=== PATIENT | female | born 1975 | race Caucasian/White ===

== ENCOUNTER 2019-04-26 14:25 | Outpatient (CLI) | payer BC, SELFPAY ==
--- NOTE | 2019-04-28 22:04 | WPDPFTINT ---
PFT Interpretation PFT Interpretation: DOS: 04/26/2019 REQUESTING: Atif Araiza MD REASON FOR TESTING: Chronic cough PULMONARY FUNCTION TESTS Spirometry: Mild decrease in FEV1 77%, 2.15 L. Mild decrease in FVC 75%. Normal FEV1%. There is a nonstatistically significant increase in FEV1 4% after bronchodilator. Lung volumes: Normal TLC, 82%. Normal RV. Mild increase in RV/TLC ratio. Normal airway resistance. Diffusion: DLCO unfortunately could not be obtained due to machine malfunction. Flow volume loop: Coughing throughout the loop. IMPRESSION: Mild obstructive ventilatory impairment, non-statistically significant increase in flows after bronchodilator, mild air trapping. No diffusion obtained due to technical problems with equipment. Traci Araiza MD
== END 2019-04-26 14:26 | disposition home or self-care (01) ==
PROVIDERS: PCP Family Medicine; Visit Provider Internal Medicine Critical Care Medicine
DX: R05 Cough (principal); R94.2 Abnormal results of pulmonary function studies
CPT/HCPCS: 94060; 94726

== ENCOUNTER 2019-07-06 13:22 | Outpatient (CLI) | payer BC, SELFPAY ==
--- NOTE | ~2019-07-06 | MR_ITS ---
EXAMINATION: MR foot RT wo con DATE: 07/06/2019 14:27 INDICATION: Pain at the right second metatarsophalangeal joint. Predislocation syndrome. TECHNIQUE: Magnetic resonance imaging (MRI) of the right foot was performed without intravenous contr ast. Sequences included sagittal T1-weighted FSE and STIR FSE, long-axis PD-weighted FS FSE and PD-we ighted FSE, and short-axis PD-weighted FS FSE, STIR FSE, and T1-weighted FSE. COMPARISON: None FINDINGS: There are surgical changes of first metatarsal, likely a bunionectomy. There is dorsiflexio n of the metatarsophalangeal joints and flexion of the interphalangeal joints, worst at the second di git. No fracture. There is mild osteoarthritis of first metatarsophalangeal joint and some of the int erphalangeal joints. Lisfranc ligament is normal. The flexor and extensor tendons are normal. There i s mild tenosynovitis of flexor digitorum of 4th digit. IMPRESSION: 1. Mild tenosynovitis of flexor digitorum of 4th digit. 2. Mild polyarticular osteoarthritis. Reviewed, dictated and finalized at location A.
== END 2019-07-06 13:23 | disposition home or self-care (01) ==
PROVIDERS: PCP Family Medicine; Visit Provider Podiatrist Foot & Ankle Surgery
DX: M24.474 Recurrent dislocation, right foot (principal); M65.871 Other synovitis and tenosynovitis, right ankle and foot; M19.071 Primary osteoarthritis, right ankle and foot
CPT/HCPCS: 73718

== ENCOUNTER 2019-08-21 00:32 | Outpatient (CLI) | payer BC, SELFPAY ==
[2019-08-21 17:33] LABS: SARS-CoV-2 RNA PCR Negative
== END 2019-08-21 00:33 | disposition home or self-care (01) ==
LOC: ANHCOVIDDT 00:33
PROVIDERS: PCP Family Medicine; Visit Provider Podiatrist Foot & Ankle Surgery
DX: Z01.812 Encounter for preprocedural laboratory examination (principal); Z20.828 Contact with and (suspected) exposure to other viral communicable diseases
CPT/HCPCS: 87635; C9803; U0003

== ENCOUNTER 2019-08-23 01:28 | Day surgery (SDC) | payer BC, SELFPAY ==
[2019-08-19 15:15] VITALS: BMI 32.3
[2019-08-23] VITALS (7 sets, daily range): BP systolic 126–144; BP diastolic 86–98; PULSE 79–103; RESP 10–20; TEMP 37.2; O2SAT 95–100
--- NOTE | ~2019-08-23 | XR_ITS ---
EXAMINATION: XR surgery orthopedic DATE: 08/23/2019 09:20 INDICATION: Right foot surgery TECHNIQUE: A single fluoroscopic spot image of the right forefoot was obtained during procedure perfo rmed by Dr. Martin. Radiologist was not present for the imaging or procedure. The amount of fluoros copy time used during this procedure was 0.3 minutes. COMPARISON: Right foot MRI dated 07/06/2019 FINDINGS: Again seen are postoperative change of prior bunionectomy and likely first metatarsal realignment ost eotomy with pin fixation. Medial sided staple at the first proximal phalangeal diaphysis likely for f ixation of an old medial closing wedge realignment osteotomy. New second proximal interphalangeal art hrodesis with fixation device. Shortening osteotomy at the neck of the second metatarsal with a pair of fixation screws. There is also a lucent anchor tract at the base of the second proximal phalanx. A lignment appears near-anatomic. No fracture. Slight widening of the second metatarsophalangeal joint space. IMPRESSION: 1. Fluoroscopy utilized during orthopedic procedures on the second ray of the right foot. See procedu re note for further detail. Reviewed, dictated and finalized at location A. IMPRESSION: 1. Fluoroscopy utilized during orthopedic procedures on the second ray of the r ight foot. See procedure note for further detail.
[2019-08-23] MEDS: LACTATED RINGERS 1,000 ML 30 ML IV CONT ×2 (06:45→09:39)
--- NOTE | 2019-08-23 06:50 | WPDANESEPPF ---
Anes - Initial Pre Proc Eval Procedure: Operation Date: 08/23/19 07:30 Proposed Procedures p Rico Salangio Osteotomy Right Hallux, Jazmyn Shortening Metatarsal Osteotomy Right Foot - Aydin Martin JR, MD s Silver Bunionectomy Right Foot, Plantar Plate Repair Second Metatarsophalangeal Joint Right Foot - Aydin Martin JR, MD s Hammer Toe Repair Second Digit Right Foot - Aydin Martin JR, MD Date/Time: 08/23/19 06:50 Surgeon: Aydin Martin JR, MD Pre Op Diagnosis: Hallux Valgus,Hammer Toe Right Foot,Metatarsalgia Patient Data Age: 44 Gender: F Height: 5 ft 6 in Weight: 90.72 kg Allergies Allergy/AdvReac Type Severity Reaction Status Date / Time No Known Allergies Allergy Verified 08/19/19 15:16 Home Medications Medication Instructions Recorded Confirmed Type gabapentin 300 mg capsule 300 mg PO QPM 07/22/19 08/23/19 History paroxetine HCl 40 mg tablet 40 mg PO QPM tablet 07/22/19 08/23/19 History pramipexole 0.5 mg tablet 1.5 mg PO QPM tablet 07/22/19 08/23/19 History acyclovir 200 mg PO QID 08/23/19 08/23/19 History Patient hx anesthesia problems: none Family hx anesthesia problems: none PMFSH Past Medical History Medical History (Updated 08/23/19 @ 06:51 by Tyson Solares MD) Anxiety Chronic cough Frequent epistaxis Neuropathy Restless leg syndrome Right knee meniscal tear Shoulder pain with history of repair of rotator cuff Family History Family History Other Family history of arthritis Family history of cardiovascular disease Hypertension Social History Social History Smoking status: Never smoker Alcohol intake: never Anes - Eval Final PreProcedure Day of Procedure 08/23/19 06:50 Patient weight: obese Heart: regular rate and rhythm Lungs: clear to auscultation Airway: Mallampati scale class II Neurological: alert and oriented Last oral intake: >/= 8 hours ASA classification: III Emergent: no Anesthetic plan: proceed Anesthesia type and monitoring: general LMA and standard monitoring Informed Consent: The patient's anesthetic plan and its attendant risks and benefits were discussed with the patient/family/POA. Questions were solicited and answers provided to the satisfaction of the patient/family/POA.
--- NOTE | 2019-08-23 07:19 | WPDHPUPDATE1 ---
History and Physical Update Update Date/Time: 08/23/19 07:19 History and Physical has been reviewed, including an updated exam of the patient. There are NO changes in the patient's condition. Risks, benefits, and alternatives have been discussed and questions answered. Patient agrees to proceed with procedure.
[2019-08-23] MEDS: ceFAZolin 2 GM/D5W 50 ML 2 GM/50 ML BAG IVPB (07:30)
[2019-08-23] MEDS: LIDOCAINE HCL 2% LOCAL INJ 20 ML VIAL INFILTRATE (08:33)
--- NOTE | 2019-08-23 09:44 | PM.OP ---
Procedure Note - Brief Procedure Note - Brief Date of procedure: 08/23/19 Pre-op diagnosis: Hallux Valgus,Hammer Toe Right Foot,Metatarsalgia Surgeon: 1. Silver bunionectomy right foot 2. Rico Phalangeal osteotomy right hallux 3. Hammertoe repair 2nd digit right foot 4. Jazmyn Shortening 2nd metatarsal osteotomy right foot 5. Primary plantar plate repair 2nd metatarsal phalangeal joint right foot
--- NOTE | 2019-08-23 18:12 | OP_ITS ---
DATE OF PROCEDURE: 08/23/2019 PREOPERATIVE DIAGNOSES: 1. 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 2. Metatarsalgia, sub 2nd metatarsophalangeal joint of the right foot. 3. Hammertoe deformity, 2nd digit, right foot. 4. Recurrent hallux abductovalgus deformity, right foot. POSTOPERATIVE DIAGNOSES: 1. 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 2. Metatarsalgia, sub 2nd metatarsophalangeal joint of the right foot. 3. Hammertoe deformity, 2nd digit, right foot. 4. Recurrent hallux abductovalgus deformity, right foot. PROCEDURE: 1. Primary plantar plate repair, 2nd metatarsophalangeal joint of the right foot. 2. Jazmyn shortening 2nd metatarsal osteotomy of the right foot. 3. Hammertoe repair, 2nd digit, right foot with proximal interphalangeal joint arthrodesis. 4. Rico phalangeal osteotomy with a Silver bunionectomy, right foot. PATHOLOGY: None. ANESTHESIA: General with local. HEMOSTASIS: Pneumatic ankle tourniquet at 250 mmHg. ESTIMATED BLOOD LOSS: Minimal. MATERIALS USED: 1. One Arthrex size 14 dart hammertoe implant. 2. One Arthrex Scorpion plantar plate repair system with one 14 mm snap-off screw and one 12 mm snap-off screw, 1 Arthrex 9 x 7 mm compression staple, 3-0 PDS, 4-0 Vicryl, and 4-0 Monocryl. INJECTABLES: 20 cc of a 1:1 mixture of 2% lidocaine plain and 0.5% Marcaine plain injected preoperatively. COMPLICATIONS: None. PROCEDURE IN DETAIL: Under mild sedation, the patient was brought to the operating room and placed on the operating table in the supine position. Pneumatic ankle tourniquet was placed about the patient's right ankle. Following general anesthesia, local anesthesia was obtained about the right foot utilizing 20 cc of a 1:1 mixture of 2% lidocaine plain and 0.5% Marcaine plain. The foot was then scrubbed, prepped, and draped in the usual aseptic manner. An Esmarch bandage was then used to examine the patient's right foot and the pneumatic ankle tourniquet was then inflated. Surgery began in the following manner: Attention was directed to the dorsum of the 2nd metatarsophalangeal joint of the right foot extending from the center shaft of the 2nd metatarsal to just distal to the proximal interphalangeal joint of the right 2nd digit. The incision was continued deep down through the subcutaneous tissues using sharp and blunt dissection. All bleeders were ligated and cauterized as necessary. At this point, the dissection was continued to the 2nd metatarsophalangeal joint where a periosteal and capsular incision, vertical incision was made just medial to the extensor tendon to the 2nd digit. The base of the proximal phalanx as well as the head of the 2nd metatarsal was exposed dorsally and soft tissue was retracted both medially and laterally. At this point, the lateral collateral ligaments to the 2nd metatarsophalangeal joint were resected and a McGlamry elevator was used to free the plantar structures from the 2nd metatarsal. Next, a Jazmyn shortening 2nd metatarsal osteotomy was created with a sagittal bone saw. The osteotomy was created starting dorsally along the proximal-most dorsal aspect of the cartilage of the 2nd metatarsal aiming in a proximal and inferior direction. After the osteotomy was completed, the head of the 2nd metatarsal was shifted proximally and held in place with temporary fixation with a K-wire. Next, another K-wire was placed along the base of the proximal phalanx and a distractor was used to open and expose the plantar plate. At this point, the 15 blade was used to transect the remaining attenuated portion of the lateral proximal phalanx and also the medial plantar plate. At this point, utilizing the ArthA4 Data Scorpion System, the tape suture system was pul
== END 2019-08-23 11:38 | disposition home or self-care (01) ==
PROVIDERS: PCP Family Medicine; Visit Provider Podiatrist Foot & Ankle Surgery
PROC: (CPT 28750; principal; 2019-08-23 07:30)
PROC: (CPT 28299; 2019-08-23 07:30)
PROC: (CPT 28899; 2019-08-23 07:30)
DX: M20.5X1 Other deformities of toe(s) (acquired), right foot (principal); M77.41 Metatarsalgia, right foot; M20.41 Other hammer toe(s) (acquired), right foot; M20.11 Hallux valgus (acquired), right foot; G25.81 Restless legs syndrome; G62.9 Polyneuropathy, unspecified; F41.9 Anxiety disorder, unspecified; E66.9 Obesity, unspecified; Z68.32 Body mass index [BMI] 32.0-32.9, adult
CPT/HCPCS: 28899; 28298; 28285; 28308; C1713; C1769; J0690; J1100; J1885; J2250; J2405; J2704; J3010; J7120

== ENCOUNTER → 2020-04-07 14:09 | Outpatient (CLI) | payer OTHER, SELFPAY ==
--- NOTE | ~2020-04-07 | MM_ITS ---
EXAMINATION: MM screening owen BI w rosana HISTORY: Screening TECHNIQUE: Craniocaudal and mediolateral oblique 3-D tomosynthesis images were obtained and synthetic 2-D images were generated. CAD analysis was submitted and interpreted. COMPARISON: Comparison to multiple prior studies sequentially, with oldest reviewed study dated 06/01. BREAST PARENCHYMAL COMPOSITION: There are scattered areas of fibroglandular density. FINDINGS: There is no evidence of suspicious mass, calcification, or architectural distortion to sugg est malignancy in either breast. There has been no suspicious interval change. IMPRESSION: 1. No mammographic evidence of malignancy. 2. Recommend routine screening mammography in one year. BI-RADS Category 1: Negative Reviewed, dictated and finalized at location A. [facility]
== END ==
PROVIDERS: Visit Provider Nurse Practitioner
DX: Z12.31 Encounter for screening mammogram for malignant neoplasm of breast (principal)
CPT/HCPCS: 77063; 77067

== ENCOUNTER → 2020-06-23 00:50 | Outpatient (CLI) | payer OTHER, SELFPAY ==
[2020-06-23 20:45] LABS: SARS-CoV-2 RNA PCR Negative
== END ==
PROVIDERS: Visit Provider Podiatrist Foot & Ankle Surgery
DX: Z01.812 Encounter for preprocedural laboratory examination (principal); Z20.822 Contact with and (suspected) exposure to COVID-19
CPT/HCPCS: C9803; U0003; U0005

== ENCOUNTER 2020-06-26 00:41 | Day surgery (SDC) | payer OTHER, SELFPAY ==
[2020-06-22 11:19] VITALS: BMI 32.3
--- NOTE | ~2020-06-26 | XR_ITS ---
EXAMINATION: XR surgery orthopedic EXAM DATE: 06/26/2020 09:40 INDICATION: Removal of osteophyte right foot. TECHNIQUE: Fluoroscopy used during osteophyte removal right foot performed by Dr. Aydin Martin JR MD. Radiologist was not present for the imaging or procedure. Total fluoroscopic time of 5 secon ds. The DAP for this procedure was 0.47 cGycm2. A total of 2 images obtained for the exam. There i s no prior study for comparison. FINDINGS: Surgical changes from bunionectomy, proximal phalangeal valgus correction. Arthrodesis of the 2nd proximal interphalangeal joint. 2 screws in the 2nd metatarsal head with widened proximal met atarsophalangeal joint, abnormal proximal phalangeal base. Correlate with procedure note. IMPRESSION: Fluoroscopy used during osteophyte removal. Reviewed, dictated and finalized at location A.
[2020-06-26 07:01] VITALS: BP 135/89; PULSE 91; RESP 18; TEMP 36.6; O2SAT 100
--- NOTE | 2020-06-26 07:12 | WPDHPUPDATE1 ---
History and Physical Update Update Date/Time: 06/26/20 07:12 History and Physical has been reviewed, including an updated exam of the patient. There are NO changes in the patient's condition. Risks, benefits, and alternatives have been discussed and questions answered. Patient agrees to proceed with procedure.
[2020-06-26] MEDS: LACTATED RINGERS 1,000 ML 30 ML IV CONT (07:20)
--- NOTE | 2020-06-26 08:28 | WPDANESEPPF ---
Anes - Initial Pre Proc Eval Procedure: Operation Date: 06/26/20 09:00 Proposed Procedures p Removal Osteophyte Right Foot - Aydin Martin JR, MD Date/Time: 06/26/20 08:28 Surgeon: Aydin Martin JR, MD Pre Op Diagnosis: osteophyte right foot Patient Data Age: 45 Gender: F Height: 5 ft 6 in Weight: 95 kg Last Vital Signs Temp 36.6 C 06/26/20 07:01 Pulse 91 06/26/20 07:01 Resp 18 06/26/20 07:01 BP 135/89 06/26/20 07:01 Pulse Ox 100 06/26/20 07:01 Allergies Allergy/AdvReac Type Severity Reaction Status Date / Time No Known Allergies Allergy Verified 06/26/20 07:28 Home Medications Medication Instructions Recorded Confirmed Type gabapentin 300 mg capsule 600 mg PO HS 07/22/19 06/26/20 History paroxetine HCl 40 mg tablet 40 mg PO HS tablet 07/22/19 06/26/20 History pramipexole 0.5 mg tablet 1.875 mg PO HS tablet 07/22/19 06/26/20 History acyclovir 200 mg PO DAILY PRN 08/23/19 06/26/20 History cranberry 400 mg PO DAILY 06/22/20 06/26/20 History carbidopa 25 mg-levodopa 100 mg 1 tablet PO BID #60 tablet 06/24/20 06/26/20 Rx tablet Patient hx anesthesia problems: none Family hx anesthesia problems: none PMFSH Past Medical History Medical History Anxiety Chronic cough Frequent epistaxis Neuropathy Restless leg syndrome Right knee meniscal tear Shoulder pain with history of repair of rotator cuff Family History Family History Other Family history of arthritis Family history of cardiovascular disease Hypertension Social History Social History Smoking status: Never smoker Alcohol intake: never Substance use: never Substance use type: does not use Living arrangements: with family Spiritual care concerns: No Anes - Eval Final PreProcedure Day of Procedure 06/26/20 08:28 Patient weight: obese Heart: regular rate and rhythm Lungs: clear to auscultation Airway: Mallampati scale class II Neurological: alert and oriented Last oral intake: >/= 8 hours ASA classification: III Emergent: no Anesthetic plan: proceed Anesthesia type and monitoring: general LMA and standard monitoring Informed Consent: The patient's anesthetic plan and its attendant risks and benefits were discussed with the patient/family/POA. Questions were solicited and answers provided to the satisfaction of the patient/family/POA.
[2020-06-26] MEDS: LIDOCAINE HCL 2% LOCAL INJ 20 ML VIAL 10 ML INFILTRATE (08:58)
[2020-06-26] MEDS: BUPIVACAINE HCL 0.5% PF 30 ML VIAL INFILTRATE (08:58)
[2020-06-26] MEDS: ceFAZolin 2 GM/D5W 50 ML 2 GM/50 ML BAG IVPB (08:58)
[2020-06-26 09:50] VITALS: BP 134/99; PULSE 94; RESP 22; O2SAT 100
--- NOTE | 2020-06-26 10:01 | P.OP_ITS ---
Procedure Note - Detailed Date of procedure: 06/26/20 Pre-op diagnosis: osteophyte right foot Post-op diagnosis: same Procedure performed: Removal of osteophyte right foot Anesthesia: MAC and local Surgeon: Aydin Martin JR, DPM Estimated blood loss (mL): 1 Drains: No Packing: No Pathology: none sent Complications: No immediate complications Condition: stable Disposition: same day Findings: Under mild sedation, the patient was brought in to the operating room, placed on the operating table in the supine position. A pneumatic ankle tourniquet was placed about the patient's ankle. Following monitored anesthesia care, local anesthesia was obtained about the foot utilizing 20 mL of a 1:1 mixture of 2% Lidocaine plain and 0.5% Marcaine plane as a Cohen block. The foot was then scrubbed, prepped, and draped in the usual aseptic manner. An Esmarch bandage was then used to exsanguinate the patient's foot and the pneumatic ankle tourniquet was then inflated. Two converging semi-elliptical incisions elipsing the original hypertrophic incision along the dorsal aspect of the first metatarsal phalangeal joint. Dissection was continued to the subcutaneous tissues all bleeders were cauterize d as necessary. Significant scar tissue was noted along with hypertrophic suture reaction. This tissue was was resected and passed from the operative site. Next a periosteal incision was made the full length of the skin incision. An osteophyte was noted dorsal medially. It was resected with an osteotome and passed from the operative site. A whitmore rasp was used to make sure there was no rough edges. Fluoroscopy was used to make sure that adequate spur resection was achieved. The wound site was flushed with copious amount of sterile saline. Next, the periosteum and capsular structures were reapproximated with 4-0 Vicryl with simple interrupted suture technique. Next, the skin was reapproximated and coapted with 4-0 Prolene horizonatal mattress suture fashion technique. Upon completion of the procedure, the incision was dressed with Adaptic, 4x4s, Kerlix, and Coban. The pneumatic ankle tourniquets were then deflated and a prompt hyperemic response was noted to all digits of the foot. The surgical shoe was then applied. The patient did very well with the procedure and the anesthesia. She was transferred to the recovery room with vital signs stable and vascular status intact to all toes of the foot. Following a period of postoperative monitoring, the patient will be discharged home on the following written and oral postoperative instructions: 1. The patient should keep the dressing clean, dry, and intact. Use a cast protector bag with showers. 2. The patient will be protected weightbearing with surgical shoe. 3. Patient should ice and elevate both feet when at rest. 4. The patient is to contact Dr. Martin for all postop care and if any problems arise. 5. Prescriptions were written for Percocet 5/325 dispensed 40 to be taken 1 p.o. q.4-6 hours as needed for severe pain.
[2020-06-26 10:20] VITALS: BP 125/87; PULSE 88; RESP 16; O2SAT 100
[2020-06-26 10:41] VITALS: BP 126/91; PULSE 93; RESP 16
== END 2020-06-26 10:52 | disposition home or self-care (01) ==
PROVIDERS: PCP Family Medicine; Visit Provider Podiatrist Foot & Ankle Surgery
PROC: (CPT 28104; principal; 2020-06-26 09:00)
DX: M25.774 Osteophyte, right foot (principal); L90.5 Scar conditions and fibrosis of skin; F41.9 Anxiety disorder, unspecified; G62.9 Polyneuropathy, unspecified; G25.81 Restless legs syndrome; E66.9 Obesity, unspecified; Z68.33 Body mass index [BMI] 33.0-33.9, adult
CPT/HCPCS: 28104; C9803; J0131; J0690; J2250; J2704; J3010; J7120; U0003; U0005

== ENCOUNTER 2020-08-13 08:56 | Outpatient (CLI) | payer OTHER, SELFPAY ==
--- NOTE | 2020-08-13 17:06 | WPDSIXMINUTE ---
Six Minute Walk Procedure Procedure Performed Pulmonary Stress Test (6 min walk) Six Minute Walk This is a 6 minutes walk test. The test was performed and interpreted in accordance with the 2014 ERS/ATS task force guidelines. Findings: The patient's resting room air oxygen saturation measured by pulse oximetry was 97% and her heart rate was 88 bpm. Patient ambulated for 427 meters and oxygen saturation remained 96 to 98%. Heart rate at the end of the study was 118 bpm. The patient did not qualify for supplemental oxygen at rest or with ambulation. There are no prior studies for comparison.
--- NOTE | 2020-08-13 17:07 | WPDPFTINT ---
PFT Procedure Performed PFT Procedure Performed Spirometry with Pre/Post Bronchodilator Plethysmography (Lung Vol) Diffusing Cap (DLCO) Flow Vol Loop PFT Interpretation This is a pulmonary function test with pre and post-bronchodilator spirometry, plethysmography and diffusing capacity. The test was performed and results interpreted in accordance with the 2019 and 2005 ATS/ERS Task Force guidelines respectively using the Global Lung Function Initiative-2012 reference equations. Patient demonstrated good effort and cooperation. Reproducibility criteria were met. The quality of the pre bronchodilator spirometry maneuver was Grade A and post bronchodilator spirometry maneuver was Grade A. Findings: Spirometry: the contour of the inspiratory and expiratory flow tracing are normal. The pre bronchodilator FVC is 2.96 L, 78% predicted. The pre bronchodilator FEV1 is 2.21 L, 72% predicted. The FEV1: FVC ratio 75%. The post bronchodilator FVC is 2.87 L, representing a 3% decrease. The post bronchodilator FEV1 is 2.25 L, representing a 2% increase. Plethysmography: The total lung capacity is 4.04 L, 75% predicted. Functional residual capacity is 1.58 L, 53% predicted. The residual volume is 1.01 L, 55% predicted. Diffusing capacity: The absolute diffusion capacity is 18.3, 77% predicted. The diffusing capacity corrected for alveolar volume is 4.86, 107% predicted. Impression: There is a mild restrictive ventilatory abnormality. The spirometry is normal without evidence of an obstructive abnormality. There is no significant improvement after inhaling a single dose of albuterol. The diffusing capacity is normal. There are no prior studies for comparison
== END 2020-08-13 08:57 | disposition home or self-care (01) ==
LOC: ANHPFT 09:02
PROVIDERS: PCP Family Medicine
DX: R53.83 Other fatigue (principal); R06.02 Shortness of breath; R94.2 Abnormal results of pulmonary function studies
CPT/HCPCS: 94060; 94618; 94726; 94729

== ENCOUNTER 2020-12-18 11:39 | Outpatient (CLI) | payer OTHER, SELFPAY ==
[2020-12-18 12:15] LABS: Basophils Percent Auto 0.4 % (0.2-1.2); Eosinophils Absolute Auto 0.3 K/mm3 (0-0.3); Eosinophils Percent Auto 4.4 % (0-4.4); Hematocrit 41.8 % (37.0-47.0); Hemoglobin 13.3 g/dL (12.0-15.0); Immature Granulocyte Absolute 0.03 K/mm3 (0.00-0.031); Immature Granulocyte Percent A 0.4 % (0-0.5); Lymphocytes Absolute Auto 1.53 K/mm3 (0.9-3.2); Lymphocytes Percent Auto 21.1 % (18.3-44.2); Mean Corpuscular HGB Conc 31.8 g/dl (32-36); Mean Corpuscular Hemoglobin 28.2 pg (26-34); Mean Corpuscular Volume 88.6 fl (80-100); Mean Platelet Volume 10.9 fl (7.4-10.4); Monocytes Absolute Auto 0.5 K/mm3 (0.1-0.6); Neutrophils Absolute Auto 4.8 K/mm3 (1.3-6.7); Neutrophils Percent Auto 66.7 % (45.5-73.1); Platelet Count Result 243 k/mm3 (150-375); Red Blood Count 4.72 M/mm3 (4.2-5.4); Red Cell Distribution Width 14.2 % (11.5-14.5); White Blood Count 7.3 K/mm3 (4.5-10.0)
[2020-12-18 12:39] LABS: Alanine Aminotransferase 24 U/L (4-35); Alkaline Phosphatase 112 U/L (38-126); Anion Gap 8 mmol/L (8-16); Aspartate Amino Transferase 30 U/L (14-36); Bilirubin,Total 0.5 mg/dL (0.2-1.3); Blood Urea Nitrogen 13 mg/dL (7-17); Calcium 9.3 mg/dL (8.4-10.2); Carbon Dioxide 27 mmol/L (22-30); Chloride 102 mmol/L (98-107); Estimated Glomerular Filt Rate > 60; Glucose 88 mg/dL (65-110); Potassium 3.9 mmol/L (3.4-5.0); Sodium 137 mmol/L (137-145)
[2020-12-18 13:03] LABS: Iron 77 ug/dL (37-170)
[2020-12-18 13:12] LABS: Percent Iron Saturation 18 % (20-50)
== END 2020-12-18 11:40 | disposition home or self-care (01) ==
PROVIDERS: PCP Family Medicine; Visit Provider Psychiatry & Neurology Neurology
DX: G25.81 Restless legs syndrome (principal)
CPT/HCPCS: 36415; 80053; 83540; 83550; 85025

== ENCOUNTER → 2021-01-26 02:27 | Outpatient (CLI) | payer OTHER, BC, SELFPAY ==
[2021-01-26 19:35] LABS: SARS-CoV-2 RNA PCR Negative
== END ==
PROVIDERS: PCP Family Medicine; Visit Provider Podiatrist Foot & Ankle Surgery
DX: Z01.812 Encounter for preprocedural laboratory examination (principal); Z20.822 Contact with and (suspected) exposure to COVID-19
CPT/HCPCS: C9803; U0003; U0005

== ENCOUNTER 2021-01-29 01:42 | Day surgery (SDC) | payer OTHER, SELFPAY ==
--- NOTE | 2021-01-25 10:49 | PC.NURSE ---
Report to the Outpatient Waiting Room, entrance under the green pavilion located off [facility], at time _0600 01/29/21 on date . OR Time: _729 . - You and your visitor will be asked a series of questions to screen for COVID 19 for your protection. - A mask is required within the hospital. - Only one visitor is allowed at this time. Patient visitors will be guided where to wait when not with patient. Preoperative COVID Testing Requirements: No COVID Test needed if: (proof is required; if not received patient will have Rapid Test prior to entry) - Patient has received COVID Vaccine at least 14 days prior to procedure date or - Patient has positive COVID test result within last 90 days of surgery date. COVID TESTING 01/26/21 AT 0830 COVID Test needed if above criteria is not met If not COVID vaccinated a COVID test must be conducted within 72 hours of surgery and patient is asked to isolate self from time of testing until procedure. You will go to the [facility] for your COVID testing. The [facility] site is located at the corner of [address] [facility]. You will only be called if COVID results are positive and your surgeon may reschedule your elective surgery date. Patients may have clear liquids (water, carbonated beverages, clear teas, apple juice) until 3 hours prior to surgery with a maximum of 20 ounces. - No food from midnight until time of surgery - Infants may have breast milk until 4 hours before surgery, formula 6 hours prior to surgery. - Children will be allowed to drink immediately following surgery. If applicable, please bring a bottle or sippy cup to assist with drinking. Juice, water, soda, and popsicles are readily available. For infants on formula, please bring formula the day of surgery. Pacifiers are allowed. Take the following medications with a SIP of water the morning of surgery: NONE Medications to discontinue per physician NONE Date to take last dose Please no make-up, nail swiss, hairspray, perfume, deodorant, or body powder the day of surgery. No jewelry (including any body piercings) or valuables the day of surgery, leave them at home. Please take a shower or bath the night before, or the morning of, surgery with an antibacterial soap. Wear comfortable, loose fitting clothing. Children are encouraged to wear pajamas. - Jewelry must be removed prior to entering the operating room. Rings and piercings that are not removed may be cut off. - The hospital will not accept responsibility for valuables. - Please leave all valuables, including medications, at home the day of surgery. If you are going home after surgery, a licensed [facility] driver must drive you home. - NO public transportation without another adult. - We recommend that an adult stay with you for 24 hours following discharge. - We also recommend that you do not drive, make important decision, drink alcoholic beverages, or take any drugs that were not prescribed by your health care provider for at least 24 hours after your discharge time. For Pediatric surgeries, we recommend two adults accompany the child home (only one inside the building at this time). Follow any additional instructions given to you from your surgeon. Telephone instructions given to PATIENT and asked if any additional questions and then verbalized understanding. Patient advised to call surgeon office or pre surgery nurse liaison [phone] if any additional questions.
[2021-01-25 10:54] VITALS: BMI 32.3
--- NOTE | 2021-01-28 14:41 | P.PNAN_ITS ---
Anes - Initial Pre Proc Eval Procedure: Operation Date: 01/29/21 07:30 Proposed Procedures p Jazmyn Shortening Second Metatarsal Osteotomy Left Foot - Aydin Martin JR, MD Date/Time: 01/28/21 14:41 Surgeon: Aydin Martin JR, MD Pre Op Diagnosis: metatarsalgia left foot Patient Data Age: 45 Gender: F Height: 1.68 m Weight: 90.75 kg Allergies Allergy/AdvReac Type Severity Reaction Status Date / Time No Known Allergies Allergy Verified 01/25/21 10:39 Home Medications Medication Instructions Recorded Confirmed Type paroxetine HCl 40 mg tablet 40 mg PO HS tablet 07/22/19 01/25/21 History pramipexole 0.75 mg tablet See Rx Instructions .ROUTE 10/08/20 01/25/21 Rx .COMPLEX #90 tablet famotidine [Pepcid] 20 mg PO PRN PRN 01/25/21 01/25/21 History Patient hx anesthesia problems: none Family hx anesthesia problems: none Results Review: All pre-operative results and documents have been reviewed as part of the pre-operative evaluation. [facility] Past Medical History Medical History (Updated 01/28/21 @ 14:42 by Tom Burr MD) Anxiety Chronic cough Chronic GERD Frequent epistaxis Neuropathy Obesity Restless leg syndrome Right knee meniscal tear Shoulder pain with history of repair of rotator cuff Family History Family History Other Family history of arthritis Family history of cardiovascular disease Hypertension Social History Social History Smoking status: Never smoker Alcohol intake: never Substance use: never Substance use type: does not use Living arrangements: with family Spiritual care concerns: No Anes - Eval Final PreProcedure Day of Procedure 01/28/21 14:41 Patient weight: obese Heart: regular rate and rhythm Lungs: clear to auscultation and normal air movement Airway: Mallampati scale class II Neurological: alert and oriented Last oral intake: >/= 8 hours ASA classification: III Emergent: no Anesthetic plan: proceed Anesthesia type and monitoring: general GIVS Results Review: All pre-operative results and documents have been reviewed as part of the pre-operative evaluation. Informed Consent: The patient's anesthetic plan and its attendant risks and benefits were discussed with the patient/family/POA. Questions were solicited and answers provided to the satisfaction of the patient/family/POA.
--- NOTE | ~2021-01-29 | XR_ITS ---
EXAMINATION: XR surgery orthopedic EXAM DATE: 01/29/2021 08:00 INDICATION: Left foot surgery. TECHNIQUE: Fluoroscopy used during left foot surgery performed by Dr. Aydin Martin JR MD. Radi ologist was not present for the imaging or procedure. Total fluoroscopic time of 3 seconds. The DAP for this procedure was 0.19 cGycm2. A total of 2 images sent to PACS from the exam. There is no p rior study for comparison. FINDINGS: Frontal image of the left foot demonstrates 2 screws in the 2nd metatarsal neck, and a K w faina in the 1st metatarsal neck. Probable 1st metatarsal osteotomy. Some gas in the surgical bed. Suze elate with procedure note. 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 IMPRESSION: Fluoroscopy used during left foot surgery. Reviewed, dictated and finalized at location D. 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
--- NOTE | 2021-01-29 07:20 | WPDHPUPDATE1 ---
History and Physical Update Update Date/Time: 01/29/21 07:20 History and Physical has been reviewed, including an updated exam of the patient. There are NO changes in the patient's condition. Risks, benefits, and alternatives have been discussed and questions answered. Patient agrees to proceed with procedure.
[2021-01-29 07:23] VITALS: BP 144/93; PULSE 90; RESP 14; TEMP 37; O2SAT 99
[2021-01-29] MEDS: ceFAZolin 2 GM/D5W 50 ML 2 GM/50 ML BAG IVPB (07:25)
[2021-01-29 07:30] VITALS: BMI 35.3
[2021-01-29] MEDS: LACTATED RINGERS 1,000 ML 30 ML IV CONT (07:30)
[2021-01-29] MEDS: LIDOCAINE HCL 2% PF INJ 5 ML VIAL 10 ML INFILTRATE (07:49)
[2021-01-29 08:11] VITALS: BP 143/88; PULSE 106; RESP 18; O2SAT 98
--- NOTE | 2021-01-29 08:16 | W.PM.PROC2 ---
Procedure Note - Detailed Date of Procedure 01/29/21 Pre-op Diagnosis metatarsalgia sub second metatarsal head left foot Post-op Diagnosis same Procedure Performed Jazmyn shortening 2nd metatarsal osteotomy left foot Surgeon Aydin Martin JR, DPM Anesthesia MAC and local Description of Procedure Under mild sedation, the patient was brought to the operating room, placed on the operating table in the supine position. A pneumatic ankle tourniquet was placed about the patient's left ankle. Following general anesthesia and a previous 2nd metatarsal nye block, the foot was then scrubbed, prepped, and draped in the usual aseptic manner. An Esmarch bandage was then used to examine the patient's left foot and pneumatic ankle tourniquet was then inflated. Surgery began in the following manner. Attention was directed to the dorsal aspect of the 2nd metatarsal head of the left foot where a 2 cm incision was made just lateral to the extensor tendon to the left 2nd digit. The incision was continued deep down through the subcu tissues using sharp and blunt dissection. All bleeders were cauterized as necessary. A full-length periosteal incision was made overlying the 2nd metatarsal distally. Next, a sagittal bone saw was used to make an osteotomy starting along the dorsal aspect of the articular surface to the head of the 2nd metatarsal in a parallel fashion to the shaft of the 2nd metatarsal. After this osteotomy was completed, the head of the 2nd metatarsal was noted to float into a more corrected proximal position. Two 2.0 mm [place] partially-threaded cannulated screws were driven from dorsal to plantar across the osteotomy site with excellent compression noted. The wound site was then flushed with copious amounts of sterile saline. Next, the periosteum and capsular structures overlying the 2nd metatarsophalangeal joints were reapproximated with 4-0 Vicryl. Next, subcutaneous structures were reapproximated and coapted utilizing 4-0 Vicryl. Next, the skin was reapproximated and coapted utilizing 4-0 Monocryl in running subcuticular suture fashion technique. Upon completion of the procedure, the incision was dressed with Steri-Strips, Adaptic, 4 x 4's, Kerlix, and Coban. The pneumatic ankle tourniquet was then deflated and a prompt hyperemic response noted to all digits of the left foot. A CAM Walker boot was then applied. The patient did very well with the procedure and the anesthesia. She was transferred to the recovery room with vital signs stable and vascular status intact to all toes of the left foot. Following a period of postoperative monitoring, the patient will be discharged home on the following written and oral postoperative instructions: 1. Keep the dressing clean, dry, and intact. Use a cast protector bag with showers. 2. The patient to be strictly nonweightbearing with a knee scooter. 3. The patient should ice and elevate the left foot when at rest. 4. The patient to contact Dr. Martin for all postop care and if any problems arise. 5. Prescriptions were written for Percocet 5/325 dispensed 40 to be taken 1 p.o. q.4 to 6 hours as needed for severe pain. Implants Two 2.0mm [place] Partially Threaded screws Estimated Blood Loss 1 Drains No Packing No Pathology none sent Complications No immediate complications Condition stable Disposition same day
[2021-01-29 08:30] VITALS: BP 139/88; PULSE 83; RESP 16; O2SAT 98
[2021-01-29 09:00] VITALS: BP 140/92; PULSE 78; RESP 16; O2SAT 97
== END 2021-01-29 09:16 | disposition home or self-care (01) ==
PROVIDERS: PCP Family Medicine; Visit Provider Podiatrist Foot & Ankle Surgery
PROC: (CPT 28750; principal; 2021-01-29 07:30)
DX: M77.42 Metatarsalgia, left foot (principal); K21.9 Gastro-esophageal reflux disease without esophagitis; G62.9 Polyneuropathy, unspecified; F41.9 Anxiety disorder, unspecified; G25.81 Restless legs syndrome; E66.9 Obesity, unspecified; Z68.35 Body mass index [BMI] 35.0-35.9, adult
CPT/HCPCS: 28308; C1713; C9290; C9803; J0690; J1100; J1885; J2250; J2405; J2704; J3010; J7120; U0003; U0005

== ENCOUNTER 2021-02-11 20:39 | Emergency (ER) | payer OTHER, BC, SELFPAY ==
--- NOTE | ~2021-02-11 | XR_ITS ---
EXAMINATION: XR foot LT min 3V DATE: 02/11/2021 23:04 INDICATION: Left foot pain and swelling. TECHNIQUE: 4 views of left foot were obtained. COMPARISON: None. FINDINGS: Bone alignment is normal. There are changes of bunionectomy with wire in first metatarsal. There are 2 screws in head of second metatarsal. There is plate and screw fixation of distal fibula. There are screws in medial malleolus. Syndesmotic bands are noted. No acute fracture. Joint spaces ar e normal. IMPRESSION: 1. No specific etiology for the patient's symptoms. Reviewed, dictated and finalized at location A. 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
[2021-02-11 20:46] VITALS: BP 175/105; PULSE 86; RESP 18; TEMP 35.9; O2SAT 99
[2021-02-11 21:31] VITALS: BP 169/107; PULSE 99; RESP 17; O2SAT 98
--- NOTE | 2021-02-11 22:53 | ED.LOWEXIN ---
HPI - Extremity Injury (Lower) General Chief Complaint: Extremity Injury, Lower Stated Complaint: L Foot pain/swelling s/p surgery Time Seen by Provider: 02/11/21 22:45 Source: patient Mode of arrival: ambulatory Limitations: no limitations History of Present Illness HPI Narrative: Patient is a 45-year-old female complaining of left foot redness and swelling particularly the third digit started today. Patient states that she surgery on her left foot third digit Dr Martin shortened it because of my hammer toe 2 weeks ago. Patient denies any fever or chills. Denies any calf pain or swelling. Related Data Home Medications Medication Instructions Recorded Confirmed paroxetine HCl 40 mg tablet 40 mg PO HS tablet 07/22/19 01/25/21 famotidine [Pepcid] 20 mg PO PRN PRN 01/25/21 01/25/21 Allergies Allergy/AdvReac Type Severity Reaction Status Date / Time No Known Allergies Allergy Verified 02/11/21 21:32 Review of Systems Review of Systems: All systems reviewed & are unremarkable except as noted in HPI and below Constitutional: Constitutional: Reports as per HPI PMFSH Past Medical History Medical History Anxiety Chronic cough Chronic GERD Frequent epistaxis Neuropathy Obesity Restless leg syndrome Right knee meniscal tear Shoulder pain with history of repair of rotator cuff Family History Family History Other Family history of arthritis Family history of cardiovascular disease Hypertension Social History Social History Smoking status: Never smoker Alcohol intake: never Substance use: never Substance use type: does not use Spiritual care concerns: No Exam Const: General: no acute distress and alert Orientation/consciousness: patient oriented x3 HENMT: Head: normal to inspection Face and sinus: normal facial exam Eyes: Conjunctivae: conjunctivae normal Neck: Neck: normal visual inspection Resp: Effort & Inspection: normal respiratory effort GI: Auscultation: Hypoactive bowel sounds present Neuro: General: moves all extremities Extrem: Other: erythematous, swollen, tender third digit left foot, neurovascular is intact Course Vital Signs Vital signs: Vital Signs Temperature 35.9 C L 02/11/21 20:46 Pulse Rate 86 02/11/21 20:46 Respiratory Rate 18 02/11/21 20:46 Blood Pressure 175/105 H 02/11/21 20:46 Pulse Oximetry 99 02/11/21 20:46 Temperature 35.9 C L 02/11/21 20:46 Pulse Rate 99 02/11/21 21:31 Respiratory Rate 17 02/11/21 21:31 Blood Pressure 169/107 H 02/11/21 21:31 Pulse Oximetry 98 02/11/21 21:31 Discharge Plan Discharge Clinical Impression: Cellulitis of toe of left foot Patient Disposition: Home, Self-Care Condition: Stable Instructions: Cellulitis (ED), Antibiotic Form Prescriptions: New cephalexin 500 mg capsule 500 mg PO Q12H 3 Days Qty: 14 RF: 0 doxycycline hyclate 100 mg capsule 100 mg PO BID Qty: 7 RF: 0 No Action paroxetine HCl 40 mg tablet 40 mg PO HS RF: 0 famotidine [Pepcid] 20 mg Tablet 20 mg PO PRN PRN (Reason: Heartburn) RF: 0 pramipexole 0.75 mg tablet See Rx Instructions .ROUTE .COMPLEX Qty: 90 RF: 2 Follow-up/Referrals: Catrina Wylie MD [Primary Care Provider] - Aydin Martin JR, MD [Physician] - 02/12/21 Time of Disposition: 23:57
[2021-02-11] MEDS: CEPHALEXIN 500 MG CAPSULE PO (23:20)
[2021-02-12 00:19] VITALS: PULSE 79; RESP 18; O2SAT 100
== END 2021-02-12 00:19 | disposition home or self-care (01) ==
PROVIDERS: Emergency Provider Emergency Medicine; PCP Family Medicine
DX: L03.032 Cellulitis of left toe (principal); F41.9 Anxiety disorder, unspecified; G62.9 Polyneuropathy, unspecified; E66.9 Obesity, unspecified; G25.81 Restless legs syndrome; Z98.890 Other specified postprocedural states
CPT/HCPCS: 73630; 99283; A9270

== ENCOUNTER → 2021-10-04 13:24 | Outpatient (CLI) | payer OTHER, BC, SELFPAY ==
--- NOTE | ~2021-10-04 | MM_ITS ---
EXAMINATION: MM screening owen BI w rosana HISTORY: Screening mammogram TECHNIQUE: Craniocaudal and mediolateral oblique 3-D tomosynthesis images were obtained and synthetic 2-D images were generated. CAD analysis was submitted and interpreted. COMPARISON: 04/07/2020 bilateral screening mammogram 08/02/2017 diagnostic right mammogram 07/11/2017 bilateral screening mammogram BREAST PARENCHYMAL COMPOSITION: There are scattered areas of fibroglandular density. FINDINGS: There is no evidence of suspicious mass, calcification, or architectural distortion to sugg est malignancy in either breast. There has been no suspicious interval change. IMPRESSION: 1. No mammographic evidence of malignancy. 2. Recommend routine screening mammography in one year. BI-RADS Category 1: Negative Reviewed, dictated and finalized at location A.
== END ==
PROVIDERS: PCP Family Medicine; Visit Provider Nurse Practitioner
DX: Z12.31 Encounter for screening mammogram for malignant neoplasm of breast (principal)
CPT/HCPCS: 77063; 77067

== ENCOUNTER → 2021-11-25 14:16 | Outpatient (CLI) | payer OTHER, BC, SELFPAY ==
--- NOTE | ~2021-11-25 | US_ITS ---
EXAMINATION: US transvaginal DATE: 11/25/2021 14:34 INDICATION: Abnormal uterine bleeding TECHNIQUE: Multiple endovaginal sonographic images of the pelvis were obtained. COMPARISON: 01/08/2018 FINDINGS: The uterus measures 9.7 x 4.4 x 4.1 cm. The endometrial complex measures 5 mm. The IUD is i n expected position.The ovaries are not visualized however no adnexal abnormality is seen. There is n o free fluid in the pelvis. IMPRESSION: 1. No sonographic correlate for the patient's symptoms. Reviewed, dictated and finalized at location B.
== END ==
PROVIDERS: PCP Family Medicine; Visit Provider Nurse Practitioner
DX: N93.8 Other specified abnormal uterine and vaginal bleeding (principal)
CPT/HCPCS: 76830